=== PATIENT | male | born 1940 | race Caucasian/White ===

== ENCOUNTER 2020-04-19 10:12 | Day surgery (SDC) | payer OTHER ==
[2020-04-19] VITALS (13 sets, daily range): BP systolic 88–106; BP diastolic 56–71
[~2020-04-19 10:12] MED LIST: famotidine 20mg tablet PO ONE; ringers solution, lacted 1,000 ML IV SCH
--- NOTE | 2020-04-19 10:30 | NUR ---
PT IS A&O X4. POOR HISTORIAN REGARDING SPECIFIC HEALTH HX. H&P FROM [facility] USED TO ASSIST IN GATHERING PT INFORMATION Addendum: 04/19/20 at 1257 by Sera Romero RN Amended: Links added.
[2020-04-19] MEDS ORDERED: FURO-149 PO (11:03)
[2020-04-19] MEDS ORDERED: APIX2.5T PO (11:03)
[2020-04-19] MEDS ORDERED: BRIM5DRO2 EACHEYE (11:03)
[2020-04-19] MEDS ORDERED: ARFO15VI NEB (11:03)
[2020-04-19] MEDS ORDERED: AMIO200T61 PO (11:03)
[2020-04-19] MEDS ORDERED: LEVO750T21 PO (11:03)
[2020-04-19] MEDS ORDERED: ATOR20TA66 PO (11:03)
[2020-04-19] MEDS ORDERED: cefazolin/dext.iso 2gm/50ml 50 ML IV ONE (11:25)
[2020-04-19] MEDS ORDERED: HYDR-4383 PO (11:30)
[2020-04-19] MEDS ORDERED: ASCO-321 PO (11:30)
[2020-04-19] MEDS ORDERED: LEVO75TA PO (11:30)
[2020-04-19] MEDS ORDERED: NICO-630 TOP (11:30)
[2020-04-19] MEDS ORDERED: ONDA4TAB6 PO (11:30)
[2020-04-19] MEDS ORDERED: POLY119P2 PO (11:30)
[2020-04-19] MEDS ORDERED: OMEP-50 PO (11:30)
[2020-04-19] MEDS ORDERED: VITA-268 PO (11:30)
[2020-04-19] MEDS ORDERED: MIDO2.5T14 PO (11:30)
[2020-04-19] MEDS ORDERED: ACET-1008 PO (11:30)
[2020-04-19] MEDS ORDERED: SENN1TAB61 PO (11:30)
[2020-04-19 11:35] LABS: BASOPHILS % (AUTO) 0.1 % (0-1); EOSINOPHILS % (AUTO) 0 % (0-6); LYMPHOCYTES # (AUTO) 0.7 X10'3 (1.1-4.8); LYMPHOCYTES % (AUTO) 3.9 % (21-51); MEAN CORPUSCULAR HEMOGLOBIN 30.8 PG (27.0-31.0); MEAN CORPUSCULAR HGB CONC 32.6 g/dL (33.0-36.5); MEAN CORPUSCULAR VOLUME 94.6 FL (78-98); MONOCYTES # (AUTO) 1.6 X10'3 (0-0.9); MONOCYTES % (AUTO) 8.3 % (2-12); NEUTROPHILS # (AUTO) 16.8 X10'3 (1.8-7.7); NEUTROPHILS % (AUTO) 87.7 % (42-75); PRE OP PLATELET COUNT 435 X10'3 (140-440); RED BLOOD COUNT 3.07 X10'6 (4.70-6.10); RED CELL DISTRIBUTION WIDTH 17.5 % (11.5-14.5)
[2020-04-19] MEDS ORDERED: albuterol 2.5 MG/3 ML nebule NEB ONE (11:35)
[2020-04-19 11:53] LABS: PRE OP PROTIME 10.3 SECONDS (9.0-12.0)
[2020-04-19 11:54] LABS: PRE OP HEMOGLOBIN 9.5 g/dL (14.0-17.9)
[2020-04-19 11:55] LABS: ALBUMIN 2.5 G/DL (3.4-5.0); ALBUMIN/GLOBULIN RATIO 0.5 (1.1-1.5); ALKALINE PHOSPHATASE 117 IU/L (46-116); BLOOD UREA NITROGEN 50 MG/DL (7-18); BUN/CREATININE RATIO 23.1 (5.4-32.0); CALCIUM 10.1 MG/DL (8.5-10.1); CHLORIDE 97 MMOL/L (99-107); CREATININE 2.16 MG/DL (0.60-1.10); PRE OP ALT 21 U/L (30-65); PRE OP ANION GAP 4 (8-16); PRE OP AST 19 U/L (10-37); PRE OP BILIRUB, TOTAL 0.5 MG/DL (0.0-1.0); PRE OP GLUCOSE 116 MG/DL (70-104); PRE OP POTASSIUM 3.8 MMOL/L (3.4-5.1); PRE OP SODIUM 138 MMOL/L (135-145); TOTAL CARBON DIOXIDE 36.7 MMOL/L (24-32); TOTAL PROTEIN 7.2 G/DL (6.4-8.2); eGFR 30 ML/MIN
[2020-04-19] MEDS ORDERED: LIDOcaine 1% W/epiNEPHrine 1:200,000 10ml vial ONE (13:31)
[2020-04-19] MEDS ORDERED: midazolam 2 mg/2 ml injection ONE (13:53)
[2020-04-19] MEDS ORDERED: fentaNYL/PF 50MCG/1 ML 2ML syringe ONE (13:53)
[2020-04-19] MEDS ORDERED: propofol inj 20 ML IV ONE (13:58)
--- NOTE | 2020-04-19 14:36 | NUR ---
Received from OR via [facility], accompanied by Anesthesiologist DR ANNA and report given by Anesthesiologist. PT DROWSY, DENIES PAIN, LEFT TEMPORAL W/SMALL INCISION W/DERMABOND CDI. Addendum: 04/19/20 at 1555 by Isela Vergara RN Amended: Links added.
[2020-04-19] MEDS ORDERED: ringers solution, lacted 1,000 ML IV SCH (15:06)
[2020-04-19] MEDS ORDERED: morphine 2 MG/ML inj. syringe IV PRN (15:10)
[2020-04-19] MEDS ORDERED: morphine 4 MG/ML inj SYRINge IV PRN (15:10)
[2020-04-19] MEDS ORDERED: meperidine/PF 25mg/ml syringe IV PRN ×3 (15:10)
[2020-04-19] MEDS ORDERED: proCHLORperazine 10 MG/2 ml inj IV PRN (15:10)
[2020-04-19] MEDS ORDERED: ondansetron/PF 4mg/2ml inj IV PRN (15:10)
--- NOTE | 2020-04-19 16:56 | NUR ---
PT AWAKE, DENIES PAIN, VSS. TRANSFERRED TO [facility] VIA W/C TO [place] W/O INCIDENT, PT TRANSFERRED ON 2 LITERS 02 SAME HE CAME IN TODAY. D/C [facility], REPORT CALLED TO RECEIVING RN AT [facility]. Addendum: 04/19/20 at 1709 by Isela Vergara RN Amended: Links added.
== END 2020-04-19 16:56 ==
LOC: PAS 10:12
PROVIDERS: ATTEND Surgery
DX: R51 Headache (principal); I77.89 Other specified disorders of arteries and arterioles; I25.10 Atherosclerotic heart disease of native coronary artery without angina pectoris; J44.9 Chronic obstructive pulmonary disease, unspecified; I25.5 Ischemic cardiomyopathy; I25.2 Old myocardial infarction; D64.9 Anemia, unspecified; N18.9 Chronic kidney disease, unspecified; Z86.73 Personal history of transient ischemic attack (TIA), and cerebral infarction without residual deficits; F17.290 Nicotine dependence, other tobacco product, uncomplicated; Z86.718 Personal history of other venous thrombosis and embolism; Z95.1 Presence of aortocoronary bypass graft; Z79.01 Long term (current) use of anticoagulants; Z79.899 Other long term (current) drug therapy
CPT/HCPCS: 36415; 37609; 80053; 85025; 85610; 85730; 93005; 94640; 94760; J2250; J2704; J3010; A4215; A7000; J7120

== ENCOUNTER 2020-04-24 11:15 | Day surgery (SDC) | payer OTHER ==
[~2020-04-24] VITALS: Ht 177.8 cm; Wt 56.9 kg
[~2020-04-24 11:15] MED LIST changes: +ACET-1008 PO; +AMIO200T61 PO; +APIX2.5T PO; +ARFO15VI NEB; +ASCO-321 PO; +ATOR20TA66 PO; +BRIM5DRO2 EACHEYE; +FURO-149 PO; +HYDR-4383 PO; +LEVO75TA PO; +MIDO2.5T14 PO; +NICO-630 TOP; +OMEP-50 PO; +ONDA4TAB6 PO; +POLY119P2 PO; +SENN1TAB61 PO; +VITA-268 PO; -famotidine 20mg tablet PO ONE; -ringers solution, lacted 1,000 ML IV SCH
[2020-04-24] MEDS ORDERED: LIDOcaine 1% 30ml preserv. free vial IJ ONE (11:45)
[2020-04-24 11:48] VITALS: BP 105/66
[2020-04-24] MEDS ORDERED: ASCO250T48 PO (11:59)
[2020-04-24] MEDS ORDERED: PRED20TA PO (11:59)
[2020-04-24] MEDS ORDERED: VANC250C5 PO (11:59)
[2020-04-24] MEDS ORDERED: LIDOcaine 1% W/epiNEPHrine 1:100,000 20ml vial SQ ONE (12:35)
[2020-04-24 13:11] VITALS: BP 110/68
[2020-04-24 13:33] VITALS: BP 109/72
[2020-04-24 14:00] VITALS: BP 103/62
[2020-04-24 14:15] VITALS: BP 100/64
== END 2020-04-24 14:25 | disposition short-term general hospital (02) ==
LOC: SSTAY O 11:15 → EDUNIT# 13:00 → SSTAY O 14:25
PROVIDERS: ATTEND Radiology Diagnostic Radiology
DX: Z49.01 Encounter for fitting and adjustment of extracorporeal dialysis catheter (principal); Z95.1 Presence of aortocoronary bypass graft; Z79.899 Other long term (current) drug therapy
CPT/HCPCS: 36589